=== PATIENT | male | born 1950 | race Hispanic/Latino ===

== ENCOUNTER 2021-04-20 09:04 | Outpatient (CLI) | payer MEDICARE | END 2021-04-20 09:05 | disposition home or self-care (01) | LOC: CSHULT 09:04 | PROVIDERS: ATTEND Family Medicine | DX: Z13.6 Encounter for screening for cardiovascular disorders (principal); Z12.2 Encounter for screening for malignant neoplasm of respiratory organs; F17.210 Nicotine dependence, cigarettes, uncomplicated; I77.811 Abdominal aortic ectasia; I71.2 Thoracic aortic aneurysm, without rupture; I70.0 Atherosclerosis of aorta; J43.9 Emphysema, unspecified | CPT/HCPCS: 71271; 76706 ==

== ENCOUNTER 2021-08-28 10:19 | Outpatient (CLI) | payer OTHER ==
[2021-08-28] MEDS ORDERED: Iopamidol 300 61% 100 ML VIAL FS ONE (10:35)
== END 2021-08-28 10:20 | disposition home or self-care (01) ==
LOC: CSHCT 10:19
PROVIDERS: ATTEND Urology
DX: C67.4 Malignant neoplasm of posterior wall of bladder (principal); N40.0 Benign prostatic hyperplasia without lower urinary tract symptoms; R91.1 Solitary pulmonary nodule; I77.811 Abdominal aortic ectasia; N28.1 Cyst of kidney, acquired; K57.30 Diverticulosis of large intestine without perforation or abscess without bleeding
CPT/HCPCS: 74178; 82565

== ENCOUNTER 2022-03-15 12:30 | Observation (INO) | payer OTHER ==
[2022-03-15 13:12] VITALS: BMI 24.5
[2022-03-15] MEDS ORDERED: Iopamidol 300 61% 100 ML VIAL FS ONE (13:42)
[2022-03-15] MEDS ORDERED: FLU VACC QS2022-23(65YR UP)/PF 240 MCG/0.7 ML SYRINGE IM ONE (13:45)
[2022-03-15] MEDS ORDERED: Nitroglycerin 2% Ointment 1 INCH/1 GM Packet TOP SCH ×2 (14:15→21:00)
[2022-03-15] MEDS ORDERED: Acetaminophen 325 MG TAB PO PRN (14:17)
[2022-03-15] MEDS ORDERED: Ondansetron PF 4 MG/2 ML Vial IVP PRN (14:17)
[2022-03-15] MEDS ORDERED: Ondansetron ODT 4 MG TAB PO PRN (14:17)
[2022-03-15] MEDS ORDERED: Nicotine 14 MG PATCH TD PRN (14:17)
[2022-03-15] MEDS ORDERED: Senokot S 8.6-50 MG TAB PO PRN (14:17)
[2022-03-15 15:11] LABS: Magnesium 1.9 mg/dL (1.6-2.6); Potassium 3.6 mmol/L (3.5-5.1)
[2022-03-15 15:26] LABS: Troponin I 0.432 ng/mL (< 0.028)
[2022-03-15] MEDS: Sodium Chloride 0.9% 1,000 ML IV SCH ×2 (15:26→19:54)
[2022-03-15] MEDS ORDERED: Nitroglycerin 50 MG/250 ML BOT 0 ML ONE (15:55)
[2022-03-15] MEDS ORDERED: Heparin 10,000 UNITS/ 10 ML VIAL ONE ×3 (15:55→17:32)
[2022-03-15] MEDS ORDERED: Verapamil 5 MG/2 ML VIAL ONE ×2 (15:56→15:58)
[2022-03-15] MEDS ORDERED: Bivalirudin 250 MG VIAL ONE (15:57)
[2022-03-15] MEDS ORDERED: Adenosine 6 MG/2 ML VIAL ONE ×2 (15:57→17:04)
[2022-03-15] MEDS ORDERED: Nitroglycerin 50 MG/250 ML BOT 250 ML ONE (15:58)
[2022-03-15] MEDS ORDERED: Lidocaine 1% MPF 2 ML VIAL ONE ×2 (16:05→16:28)
[2022-03-15] MEDS ORDERED: Communication Order-Pharmacy FS SCH (16:15)
[2022-03-15] MEDS ORDERED: Midazolam HCl 2 mg/2 ml Vial ONE ×2 (16:30→16:52)
[2022-03-15] MEDS ORDERED: Fentanyl 100 MCG/2 ML VIAL ONE (16:30)
[2022-03-15] MEDS ORDERED: Atropine Sulfate 0.4 mg/1 ml Vial ONE (16:46)
[2022-03-15] MEDS ORDERED: Lidocaine 1% 20 ML MDV ONE (16:50)
[2022-03-15] MEDS ORDERED: TICAGRELOR 90 MG TABLET ONE (16:58)
[2022-03-15] MEDS ORDERED: Nitroglycerin 0.4 MG TAB (25 Tab Bottle) SL PRN (18:03)
[2022-03-15 19:18] LABS: CKMB 48.2 ng/mL (0-6.6)
[2022-03-15 19:48] LABS: Bilirubin Neg (Negative); Blood, Urine 10 (Negative); Clarity Clear (Clear); Glucose, Urine (Dipstick) Normal (Negative); Ketone, Urine 15 mg/dL (Negative); Leukocyte Negative (Negative); Nitrite Negative (Negative); Protein, Urine (Dipstick) Negative (Neg-Trace); Urobilinogen Normal mg/dL (Less than 2)
[2022-03-15 19:55] LABS: Bacteria/HPF Rare-Few HPF (None Seen); RBC/HPF 0-3 HPF (0-3); Squamous Epithelial 0-3 HPF (0-3); WBC/HPF None Seen HPF (0-3)
[2022-03-15] MEDS: Morphine 2 MG/ML VIAL SLOW IVP PRN (19:58)
[2022-03-15] MEDS ORDERED: Atorvastatin Calcium 40 MG TAB PO SCH (21:00)
[2022-03-15] MEDS ORDERED: Enoxaparin Sodium 80 MG/0.8 ML SYRINGE SC SCH ×2 (21:00→22:30)
[2022-03-15] MEDS: Famotidine 20 MG TAB PO SCH (21:24)
[2022-03-15] MEDS: Atorvastatin Calcium 40 MG TAB PO SCH (21:24)
[2022-03-16] MEDS: Morphine 2 MG/ML VIAL SLOW IVP PRN ×3 (00:08→13:57)
[2022-03-16 04:19] LABS: ALT (SGPT) 14 U/L (8-55); AST (SGOT) 66 U/L (5-34); Albumin 3.5 g/dL (3.4-4.8); Alkaline Phosphatase 60 U/L (40-110); Anion Gap 13 mmol/L (10-20); BUN (Urea Nitrogen) 7 mg/dL (8.4-25.7); Bilirubin, Total 1.5 mg/dL (0.2-1.2); Calc. Creatinine Clearance 106 mL/min (70-130); Calcium 8.1 mg/dL (7.8-10.44); Carbon Dioxide 21 mmol/L (23-31); Cardiac Risk 5.6 (Less than 4.5); Chloride 109 mmol/L (98-107); Cholesterol 186 mg/dl (< 200 Desired); Estimated GFR 99; Globulin 2.6 g/dL (2.4-3.5); Glucose 95 mg/dL (80-115); HDL Cholesterol 33 mg/dL (>60 Neg Risk); LDL Cholesterol, Calculated 130 mg/dL; Protein, Total 6.1 g/dL (5.8-8.1); Sodium 140 mmol/L (136-145); Triglycerides 117 mg/dL (Less than 150)
[2022-03-16 04:22] LABS: Troponin I 27.745 ng/mL (< 0.028)
[2022-03-16 04:36] LABS: #Eosinphils 0.1 10x3/uL (0.0-0.5); #Monocytes 0.4 10x3/uL (0.0-1.1); %Basophils 0.4 % (0.0-2.0); %Eosinophils 0.7 % (0.0-6.0); %Lymphocytes 18.5 % (18.0-47.0); %Monocytes 5.5 % (0.0-10.0); %Neutrophils 74.5 % (40.0-75.0); Hemoglobin 12.7 g/dL (13.5-17.5); Mean Corpuscular HGB CONC 34.1 g/dL (32.0-36.0); Mean Corpuscular Hemoglobin 31.5 pg (27.0-33.0); Mean Corpuscular Volume 92.3 fl (81.2-95.1); Mean Platelet Volume 10.5 fl (7.4-10.4); Platelet Count 197 10x3/uL (150-450); RBC Distribution Width 13.4 % (11.5-14.5); Red Blood Cell (RBC) Count 4.03 10x6/uL (4.32-5.72)
[2022-03-16] MEDS: Sodium Chloride 0.9% 1,000 ML IV SCH ×4 (06:58→21:00)
[2022-03-16 07:22] LABS: Anion Gap 13 mmol/L (10-20); BUN (Urea Nitrogen) 7 mg/dL (8.4-25.7); Calc. Creatinine Clearance 111 mL/min (70-130); Calcium 8.1 mg/dL (7.8-10.44); Carbon Dioxide 20 mmol/L (23-31); Chloride 109 mmol/L (98-107); Estimated GFR 100; Glucose 100 mg/dL (80-115); Potassium 3.1 mmol/L (3.5-5.1); Sodium 139 mmol/L (136-145)
[2022-03-16] MEDS ORDERED: TICAGRELOR 90 MG TABLET PO SCH ×2 (08:00→21:00)
[2022-03-16] MEDS ORDERED: Enoxaparin Sodium 80 MG/0.8 ML SYRINGE SC SCH (09:00)
[2022-03-16] MEDS ORDERED: Lisinopril 5 MG TAB PO SCH (09:00)
[2022-03-16] MEDS: Aspirin Chewable 81 MG TAB PO SCH (09:11)
[2022-03-16] MEDS: Famotidine 20 MG TAB PO SCH ×2 (09:12→20:12)
[2022-03-16] MEDS ORDERED: Carvedilol 6.25 MG TAB PO SCH (09:30)
[2022-03-16] MEDS: Potassium Chloride 20 MEQ TAB PO SCH ×2 (10:21→14:01)
[2022-03-16 10:33] LABS: Magnesium 1.9 mg/dL (1.6-2.6)
[2022-03-16 10:50] LABS: Troponin I 33.243 ng/mL (< 0.028)
[2022-03-16] MEDS ORDERED: hydrOXYzine 25 MG TAB PO SCH (15:45)
[2022-03-16] MEDS: Carvedilol 6.25 MG TAB PO SCH (16:22)
[2022-03-16 19:43] LABS: Troponin I 38.145 ng/mL (< 0.028)
[2022-03-16] MEDS: Atorvastatin Calcium 40 MG TAB PO SCH (20:12)
[2022-03-16 23:13] LABS: Critical Call Chem Troponin I RESULT DECREASING; Troponin I 36.864 ng/mL (< 0.028)
[2022-03-17 04:28] LABS: Anion Gap 14 mmol/L (10-20); BUN (Urea Nitrogen) 7 mg/dL (8.4-25.7); Calc. Creatinine Clearance 108 mL/min (70-130); Calcium 8.7 mg/dL (7.8-10.44); Carbon Dioxide 20 mmol/L (23-31); Chloride 107 mmol/L (98-107); Estimated GFR 99; Glucose 87 mg/dL (80-115); Potassium 3.5 mmol/L (3.5-5.1); Sodium 137 mmol/L (136-145)
[2022-03-17 04:29] LABS: #Eosinphils 0.2 10x3/uL (0.0-0.5); #Monocytes 0.6 10x3/uL (0.0-1.1); #Neutrophils 5.1 10x3/uL (1.5-8.4); %Basophils 0.4 % (0.0-2.0); %Eosinophils 2.1 % (0.0-6.0); %Lymphocytes 22.1 % (18.0-47.0); %Monocytes 8.2 % (0.0-10.0); %Neutrophils 66.9 % (40.0-75.0); Hemoglobin 13.6 g/dL (13.5-17.5); Mean Corpuscular HGB CONC 34.3 g/dL (32.0-36.0); Mean Corpuscular Hemoglobin 31.3 pg (27.0-33.0); Mean Corpuscular Volume 91.2 fl (81.2-95.1); Mean Platelet Volume 10.5 fl (7.4-10.4); Platelet Count 216 10x3/uL (150-450); RBC Distribution Width 13.3 % (11.5-14.5); Red Blood Cell (RBC) Count 4.34 10x6/uL (4.32-5.72); White Blood Cell (WBC) Count 7.6 10x3/uL (3.5-10.5)
[2022-03-17 08:55] LABS: Magnesium 2.2 mg/dL (1.6-2.6)
[2022-03-17] MEDS ORDERED: Prasugrel 10 MG TAB PO SCH (09:00)
[2022-03-17] MEDS ORDERED: Magnesium Oxide 400 MG TAB PO SCH (09:00)
[2022-03-17] MEDS ORDERED: Lisinopril 10 MG TAB PO SCH (09:00)
[2022-03-17] MEDS: Aspirin Chewable 81 MG TAB PO SCH (09:36)
[2022-03-17] MEDS: Carvedilol 6.25 MG TAB PO SCH (09:38)
[2022-03-17] MEDS: Famotidine 20 MG TAB PO SCH (09:38)
[2022-03-17 10:44] LABS: Troponin I 29.672 ng/mL (< 0.028)
[2022-03-17 12:28] VITALS: BP 112/66; TEMP 97.9
== END 2022-03-17 12:30 | disposition home or self-care (01) ==
LOC: CSHTELE 12:30 → INTOOBSV 12:30
PROVIDERS: ADMIT Internal Medicine; ATTEND Internal Medicine
DX: I21.4 Non-ST elevation (NSTEMI) myocardial infarction (principal); I25.10 Atherosclerotic heart disease of native coronary artery without angina pectoris; I11.0 Hypertensive heart disease with heart failure; I50.20 Unspecified systolic (congestive) heart failure; E78.5 Hyperlipidemia, unspecified; E87.6 Hypokalemia; Z79.82 Long term (current) use of aspirin; F17.210 Nicotine dependence, cigarettes, uncomplicated; Z79.899 Other long term (current) drug therapy
CPT/HCPCS: 36140; 80048 ×2; 80053; 80061; 81001; 82553; 83735 ×3; 84132; 84484 ×4; 85025 ×2; 85347 ×2; 92978; 93005 ×2; 93306; 93454; 94760 ×3; C1725; C1753; C1769 ×2; C1874 ×3; C1887; C1894 ×2; C9600; J2270 ×2; 36415; 92928; 93010; 96372; 96374; 96376; 99152; 99153; G0378; J0153; J0461; J0583; J1644; J1650; J2250; J3010; J7050; Q9967

== ENCOUNTER 2023-01-07 08:13 | Outpatient (CLI) | payer OTHER ==
[2023-01-07] MEDS ORDERED: Iopamidol 300 61% 100 ML VIAL FS ONE (11:30)
== END 2023-01-07 08:14 | disposition home or self-care (01) ==
LOC: CSHCT 08:13
PROVIDERS: ATTEND Urology
DX: C67.4 Malignant neoplasm of posterior wall of bladder (principal); N28.1 Cyst of kidney, acquired
CPT/HCPCS: 74178; 82565

== ENCOUNTER 2024-05-21 09:03 | Outpatient (CLI) | payer OTHER ==
[2024-05-21] MEDS ORDERED: Iopamidol 300 61% 100 ML VIAL FS ONE (13:27)
== END 2024-05-21 09:04 | disposition home or self-care (01) ==
LOC: CSHCT 09:03
PROVIDERS: ATTEND Urology
DX: C67.4 Malignant neoplasm of posterior wall of bladder (principal); N28.1 Cyst of kidney, acquired; I77.810 Thoracic aortic ectasia; I77.811 Abdominal aortic ectasia
CPT/HCPCS: 74178; 82565; Q9967